=== PATIENT | male | born 1985 | race Hispanic/Latino ===

== ENCOUNTER 2020-11-12 16:28 | Emergency (ER) | payer SELFPAY ==
--- NOTE | 2020-11-12 19:01 | RAD REPORT ---
EXAM DESCRIPTION: Addi Single View11/12/2020 5:53 pm CLINICAL HISTORY: Chest pain COMPARISON: none FINDINGS: Left lateral base is hazy. The remainder of the lungs appear clear of acute infiltrate. The heart is normal size IMPRESSION: Left lateral base is hazy which could be secondary to overlying soft tissue or a mild i nfiltrate. PA and lateral chest series may be helpful for further evaluation if clinically indicated
[2020-11-12 19:57] LABS: SARS-COV-2 RT PCR POSITIVE (NEGATIVE)
--- NOTE | 2020-11-12 20:04 | ER ---
Nurse's Notes [facility] Name: Natanael Pop Age: 35 yrs Sex: Male : 1985 Arrival Date: 11/12/2020 Time: 16:33 Bed 26 Private MD: Diagnosis: Coronavirus infection, unspecified Presentation: 11/12 16:47 Chief complaint: Patient states: tested positive for covid 12 days ago, did not have em any symptoms until yesterday, reports fever, chills, headache and body aches. Coronavirus screen: chills, fever, headache, Client reports previous positive COVID test result. Date of collection: November 01, 2020. Ebola Screen: Patient negative for fever greater than or equal to 101.5 degrees Fahrenheit, and additional compatible Ebola Virus Disease symptoms Patient denies exposure to infectious person. Patient denies travel to an Ebola-affected area in the 21 days before illness onset. No symptoms or risks identified at this time. Initial Sepsis Screen: Does the patient meet any 2 criteria? No. Patient's initial sepsis screen is negative. Does the patient have a suspected source of infection? No. Patient's initial sepsis screen is negative. Risk Assessment: Do you want to hurt yourself or someone else? Patient reports no desire to harm self or others. Onset of symptoms was November 12, 2020. 16:47 Method Of Arrival: Ambulatory em 16:47 Acuity: JORGE 3 em Historical: - Allergies: 16:50 No Known Allergies; em - PMHx: 16:50 None; em - PSHx: 16:50 None; em - Immunization history:: Adult Immunizations up to date. - Social history:: Smoking status: Patient denies any tobacco usage or history of. Screenin:05 Abuse screen: Denies threats or abuse. Denies injuries from another. Nutritional zb screening: No deficits noted. Tuberculosis screening: No symptoms or risk factors identified. Fall Risk None identified. Assessment: 18:06 General: Appears in no apparent distress. uncomfortable, Behavior is calm, cooperative, zb appropriate for age, Reports chills for 1-2 days, fever for 1-2 days, feeling ill for 1-2 days, fatigue for 1-2 days. Pain: Complains of pain in forehead, generalized body aches Pain does not radiate. Pain currently is 8 out of 10 on a pain scale. Quality of pain is described as aching, Pain began 1 day ago. Neuro: Level of Consciousness is awake, alert, obeys commands, Oriented to person, place, time, situation. Cardiovascular: Capillary refill < 3 seconds in bilateral fingers Patient's skin is warm and dry. Respiratory: Airway is patent Respiratory effort is even, unlabored, Respiratory pattern is regular, symmetrical. GI: Reports diarrhea, nausea. Derm: Skin is intact, is healthy with good turgor, Skin is dry, Skin is normal, Skin temperature is warm. Musculoskeletal: Circulation, motion, and sensation intact. Range of motion: intact in all extremities. 18:39 Reassessment: Patient appears in no apparent distress at this time. Patient and/or zb family updated on plan of care and expected duration. Pain level reassessed. Patient is alert, oriented x 3, equal unlabored respirations, skin warm/dry/pink. patient awaiting result. ambulated to restroom. 19:16 Reassessment: patient states he is feeling nauseous. notified ECP. zb Vital Signs: 16:47 BP 149 / 106; Pulse 81; Resp 18; Temp 98.5(O); Pulse Ox 99% on R/A; Weight 104.33 kg; em Height 5 ft. 10 in. (177.80 cm); Pain 8/10; 17:45 BP 130 / 91; Pulse 67; Resp 16; Pulse Ox 96% on R/A; zb 18:38 BP 128 / 82; Pulse 65; Resp 16; Pulse Ox 97% on R/A; zb 20:34 BP 118 / 68; Pulse 64; Resp 18; Pulse Ox 98% ; ak2 16:47 Body Mass Index 33.00 (104.33 kg, 177.80 cm) em ED Course: 16:33 Patient arrived in ED. mr 16:36 [facility]man [facility]C [facility] kb 16:36 Abilio Bowens MD is Attending Physician. kb 16:50 Triage completed. em 16:50 Arm band placed on. em 17:06 Kika Samuels, TORO is Primary Nurse. zb 17:30 Flu and/or RSV swab sent to lab. Strep swab sent to lab. zb 17:53 Chest Single View XRAY In Process Unspecified. EDMS 18:05 Patient has correct armband on for positive identification. Bed in low position. Call zb light in reach. Side rails up X 1. Pulse ox on. NIBP on. Door closed. Noise minimized. 20:35 No provider procedures requiring assistance completed. Patient did not have IV access ak2 during this emergency room visit. Administered Medications: 19:55 Drug: Zofran (Ondansetron) 4 mg Route: PO; ak2 Outcome: 20:03 Discharge ordered by MD. jorge 20:35 Discharged to home ambulatory. ak2 20:35 Condition: stable 20:35 Discharge instructions given to patient. 20:36 Patient left the ED. ak2 Signatures: Dispatcher [employer] Soumya Kebede, FIRE EXTINGUISHER SPRINKLER INSPECTOR-C FIRE EXTINGUISHER SPRINKLER INSPECTOR-Susana Joel Edgar, RN RN Kika Burgess RN RN Abhishek Fried ak2
--- NOTE | 2020-11-12 20:04 | EDPHYS ---
Physician Documentation [facility] Name: Natanael Pop Age: 35 yrs Sex: Male : 1985 Arrival Date: 11/12/2020 Time: 16:33 Bed 26 Private MD: ED Physician Abilio Bowens HPI: 11/12 20:17 This 35 yrs old Male presents to ER via Ambulatory with complaints of COVID+, kb Fever. 20:17 The patient or guardian reports flu symptoms, low-grade fever, myalgias. Onset: The kb symptoms/episode began/occurred yesterday. Severity of symptoms: At their worst the symptoms were moderate, in the emergency department the symptoms are unchanged. Modifying factors: The symptoms are alleviated by nothing, the symptoms are aggravated by nothing. Associated signs and symptoms: Pertinent positives: fever, Pertinent negatives: chest pain, diarrhea, ear ache, nausea, rhinorrhea, sore throat, vomiting. The patient has not experienced similar symptoms in the past. The patient has not recently seen a physician. Pt reports fever, chills, bodyaches, headache, malaise since yesterday. States he was tested for COVID 12 days ago due to exposure and was positive but asymptomatic until yesterday. Historical: - Allergies: 16:50 No Known Allergies; em - PMHx: 16:50 None; em - PSHx: 16:50 None; em - Immunization history:: Adult Immunizations up to date. - Social history:: Smoking status: Patient denies any tobacco usage or history of. ROS: 20:15 ENT: Negative for injury, pain, and discharge, Cardiovascular: Negative for chest pain, kb palpitations, and edema, Abdomen/GI: Negative for abdominal pain, nausea, vomiting, diarrhea, and constipation, MS/Extremity: Negative for injury and deformity, Skin: Negative for injury, rash, and discoloration. 20:15 Constitutional: Positive for body aches, chills, fatigue, fever, malaise. 20:15 Respiratory: Positive for dyspnea on exertion, Negative for cough, hemoptysis, orthopnea, pleurisy, shortness of breath, sputum production, wheezing. 20:15 Neuro: Positive for headache. Exam: 20:16 Constitutional: This is a well developed, well nourished patient who is awake, alert, kb and in no acute distress. Head/Face: Normocephalic, atraumatic. ENT: Moist Mucous membranes Cardiovascular: Regular rate and rhythm with a normal S1 and S2. No gallops, murmurs, or rubs. No pulse deficits. Respiratory: Respirations even and unlabored. No increased work of breathing, no retractions or nasal flaring. Abdomen/GI: Soft, non-tender. No distention Skin: Warm, dry with normal turgor. Normal color. MS/ Extremity: Pulses equal, no cyanosis. Neurovascular intact. Full, normal range of motion. Neuro: Awake and alert, GCS 15, oriented to person, place, time, and situation. Moves all extremities. Normal gait. Psych: Awake, alert, with orientation to person, place and time. Behavior, mood, and affect are within normal limits. Vital Signs: 16:47 BP 149 / 106; Pulse 81; Resp 18; Temp 98.5(O); Pulse Ox 99% on R/A; Weight 104.33 kg; em Height 5 ft. 10 in. (177.80 cm); Pain 8/10; 17:45 BP 130 / 91; Pulse 67; Resp 16; Pulse Ox 96% on R/A; zb 18:38 BP 128 / 82; Pulse 65; Resp 16; Pulse Ox 97% on R/A; zb 20:34 BP 118 / 68; Pulse 64; Resp 18; Pulse Ox 98% ; ak2 16:47 Body Mass Index 33.00 (104.33 kg, 177.80 cm) em MDM: 16:51 Patient medically screened. kb 20:14 Data reviewed: vital signs, nurses notes. Data interpreted: Pulse oximetry: on room air kb is 97 %. Interpretation: normal. Counseling: I had a detailed discussion with the patient and/or guardian regarding: the historical points, exam findings, and any diagnostic results supporting the discharge/admit diagnosis, lab results, radiology results, the need for outpatient follow up, a family practitioner, to return to the emergency department if symptoms worsen or persist or if there are any questions or concerns that arise at home. 11/12 16:52 Order name: Flu kb 11/12 16:52 Order name: Strep kb 11/12 16:52 Order name: COVID-19 : Document "Date of Symptom Onset" if Symptomatic. kb 11/12 16:53 Order name: Group A Streptococcus Rapid Sc; Complete Time: 18:57 EDNJ 11/12 16:52 Order name: Chest Single View XRAY; Complete Time: 19:10 kb 11/12 18:56 Order name: Throat Culture EDNJ 11/12 19:57 Order name: COVID-19/FLU A+B; Complete Time: 19:57 EDMS Administered Medications: 19:55 Drug: Zofran (Ondansetron) 4 mg Route: PO; ak2 Disposition: 11/13 09:26 Co-signature as Attending Physician, Abilio Bowens MD I agree with the assessment and roddy plan of care. Disposition: 11/12/20 20:03 Discharged to Home. Impression: Coronavirus infection, unspecified. - Condition is Stable. - Discharge Instructions: Viral Respiratory Infection, [place]s, COVID-19. - Prescriptions for Zofran 4 mg Oral Tablet - take 1 tablet by ORAL route every 6 hours As needed; 20 tablet. - Medication Reconciliation Form, Thank You Letter, Antibiotic Education, Prescription Opioid Use form. - Follow up: Emergency Department; When: As needed; Reason: Worsening of condition. Follow up: Private Physician; When: 2 - 3 days; Reason: Recheck today's complaints, Continuance of care, Re-evaluation by your physician. Signatures: Dispatcher [employer] [facility] Soumya Rothman, LACIE ALFAROP-Abilio Chacon MD MD cha Munoz, Edgar, RN RN Abhishek Ibrahim ak2 Corrections: (The following items were deleted from the chart) 11/12 18:43 16:53 CORONAVIRUS ordered. [facility] 18:44 16:53 Influenza Screen (A ordered. [facility] 20:36 20:03 11/12/2020 20:03 Discharged to Home. Impression: Coronavirus infection, ak2 unspecified. Condition is Stable. Forms are Medication Reconciliation Form, Thank You Letter, Antibiotic Education, Prescription Opioid Use. Follow up: Emergency Department; When: As needed; Reason: Worsening of condition. Follow up: Private Physician; When: 2 - 3 days; Reason: Recheck today's complaints, Continuance of care, Re-evaluation by your physician. kb
[2020-11-12] MEDS ORDERED: ONDANSETRON 4 MG (ODT) TAB ONE (20:10)
[2020-11-12 21:07] VITALS: TEMP 98.5
[2020-11-12 21:11] VITALS: BP 118/68; O2SAT 98
== END 2020-11-12 20:36 | disposition home or self-care (01) ==
LOC: ER 16:28
DX: U07.1 COVID-19 (principal)
CPT/HCPCS: 0240U; 71045; 87070; 87081; 99284

== ENCOUNTER 2020-12-09 08:59 | Emergency (ER) | payer SELFPAY ==
[2020-12-09 09:37] LABS: Absolute Lymphocytes (CBC) 1.7 K/uL (0.7-4.9); Basophils % 0.7 % (0-1.3); Hematocrit 46.8 % (39.6-49.0); Lymphocytes % 11.5 % (15.3-44.8); MPV 8.8 fL (7.6-11.3); RBC Red Blood Cell Count 5.09 M/uL (4.33-5.43)
--- NOTE | 2020-12-09 09:43 | RAD REPORT ---
EXAM DESCRIPTION: CT - Abdomen Pelvis W Contrast - 12/09/2020 9:34 am CLINICAL HISTORY: nausea/vomiting/diarrhea COMPARISON: No comparisons TECHNIQUE: Biphasic, helical CT imaging of the abdomen and pelvis was performed following 100 ml non -ionic IV contrast. No oral contrast administered. All CT scans are performed using dose optimization technique as appropriate and may include automated exposure control or mA/KV adjustment according to patient size. FINDINGS: No suspicious findings in the lung bases. The liver, spleen, and pancreas show no focal lesions. Liver attenuation indicates a mild diffuse fat ty infiltration. No portal vein abnormality. . Cholecystectomy clips are present. No biliary tree abn ormal dilatation. Symmetric renal function is seen with no hydronephrosis or suspicious renal mass. No pyelonephritis o r acute parenchymal process. No bladder abnormalities. No adrenal abnormalities. No gastric dilatation or wall thickening. Multiple fluid-filled nondilated small bowel loops are pres ent. Fluid is in the nondilated colon as well. No appendicitis. Patient has minimal sigmoid diverticu losis. There is a short 3 centimeter long segment of mid sigmoid colon showing mild wall thickening w ith a trace amount of stranding in the adjacent fat. No free air, free fluid or pneumatosis. No evette ia, mass or bulky lymphadenopathy. No suspicious bony findings. IMPRESSION: Patient has mild sigmoid diverticulitis pattern. There is wall thickening, stranding an d a few diverticula in the mid sigmoid colon. Patient also has an overall enteritis pattern with fluid in nondilated large and small bowel.
[2020-12-09] MEDS ORDERED: NA CHLORIDE 0.9% 1,000 ML ONE (09:46)
[2020-12-09] MEDS ORDERED: ONDANSETRON 4 MG/2 ML VIAL ONE (09:46)
--- NOTE | 2020-12-09 09:47 | ER ---
Nurse's Notes [facility] Name: Natanael Pop Age: 35 yrs Sex: Male : 1985 Arrival Date: 12/09/2020 Time: 09:02 Bed 15 Private MD: Diagnosis: Diverticulitis of large intestine without perforation or abscess without bleeding Presentation: 12/09 09:09 Chief complaint: Patient states: Abd pain with N/V/D off/on since November 03. No fever. ll1 Coronavirus screen: Client denies travel out of the [place] in the last 14 days. diarrhea, nausea, vomiting. Client presents with at least one sign or symptom that may indicate coronavirus-19. Standard/surgical mask placed on the client. Ebola Screen: Patient denies travel to an Ebola-affected area in the 21 days before illness onset. Initial Sepsis Screen: Does the patient meet any 2 criteria? No. Patient's initial sepsis screen is negative. Does the patient have a suspected source of infection? Yes: Acute abdominal pain. Risk Assessment: Do you want to hurt yourself or someone else? Patient reports no desire to harm self or others. Onset of symptoms was November 03, 2020. 09:09 Method Of Arrival: Ambulatory [facility] 09:09 Acuity: JORGE 3 ll1 Triage Assessment: 09:06 General: Appears in no apparent distress. uncomfortable, Behavior is calm, cooperative, bp appropriate for age. Pain: Denies pain. EENT: No deficits noted. Neuro: Level of Consciousness is awake, alert, obeys commands, Oriented to Appropriate for age. Cardiovascular: No deficits noted. Respiratory: No deficits noted. GI: Reports nausea, vomiting. : No signs and/or symptoms were reported regarding the genitourinary system. Derm: No deficits noted. Musculoskeletal: No deficits noted. Historical: - Allergies: 09:11 No Known Allergies; ll1 - PMHx: 09:11 None; ll1 - PSHx: 09:11 Cholecystectomy; ll1 - Immunization history:: Client reports having NOT received the Covid vaccine. Flu vaccine is up to date. - Social history:: Smoking status: Patient denies any tobacco usage or history of. - Family history:: not pertinent. - Hospitalizations: : No recent hospitalization is reported. Screenin:08 Abuse screen: Denies threats or abuse. Denies injuries from another. Nutritional bp screening: No deficits noted. Tuberculosis screening: No symptoms or risk factors identified. Fall Risk None identified. Assessment: 09:08 General: SEE TRIAGE NOTE. bp 09:20 Reassessment: PT TO CT. bp 09:43 Reassessment: No changes from previously documented assessment. Patient and/or family bp updated on plan of care and expected duration. Pain level reassessed. Patient is alert, oriented x 3, equal unlabored respirations, skin warm/dry/pink. PT RETURNED FROM CT. 10:00 Reassessment: No changes from previously documented assessment. Patient and/or family bp updated on plan of care and expected duration. Pain level reassessed. D/C ON HOLD FOR IV ABX. 11:41 Reassessment: PT D/C HOME AMBULATORY, DX WITH DIVERTICULITIS WITHOUT PERFORATION. bp Vital Signs: 09:09 BP 142 / 108; Pulse 89; Resp 16; Temp 98.0; Pulse Ox 99% ; Weight 99.79 kg; Height 5 ll1 ft. 10 in. (177.80 cm); Pain 0/10; 09:42 BP 123 / 81; Pulse 81; Resp 16; Pulse Ox 97% ; bp 10:30 BP 123 / 82; Pulse 81; Resp 16; Pulse Ox 99% ; bp 11:30 BP 117 / 83; Pulse 73; Resp 16; Pulse Ox 97% ; bp 09:09 Body Mass Index 31.57 (99.79 kg, 177.80 cm) ll1 ED Course: 09:02 Patient arrived in ED. am2 09:03 Edgar Lynch MD is Attending Physician. rn 09:06 Familia Soliz, TORO is Primary Nurse. bp 09:08 Patient has correct armband on for positive identification. Bed in low position. Call bp light in reach. Side rails up X2. 09:10 Arm band placed on. bp 09:11 Triage completed. ll1 09:22 Inserted saline lock: 18 gauge in right antecubital area, using aseptic technique. bp Blood collected. 09:34 CT Abd/Pelvis - IV Contrast Only In Process Unspecified. EDMS 09:46 Brent Cat MD is Referral Physician. rn 11:30 No provider procedures requiring assistance completed. IV discontinued, intact, bp bleeding controlled, No redness/swelling at site. Pressure dressing applied. Administered Medications: 09:22 Drug: NS 0.9% 1000 ml Route: IV; Rate: 1000 ml; Site: right antecubital; bp 11:44 Follow up: IV Status: Completed infusion; IV Intake: 1000ml bp 09:22 Drug: Zofran (Ondansetron) 4 mg Route: IVP; Site: right antecubital; bp 10:07 Follow up: Response: Nausea is decreased bp 10:00 Drug: Flagyl (metroNIDAZOLE) 500 mg Volume: 100 ml; Route: IVPB; Rate: 200 ml/hr; bp Infused Over: 30 mins; Site: right antecubital; 11:45 Follow up: IV Status: Completed infusion; IV Intake: 100ml bp 10:30 Drug: Cipro (ciprofloxacin) 400 mg Volume: 200 ml; Route: IVPB; Infused Over: 60 mins; bp Site: right antecubital; 11:45 Follow up: IV Status: Completed infusion bp Intake: 11:44 IV: 1000ml; Total: 1000ml. bp 11:45 IV: 100ml; Total: 1100ml. bp Outcome: 09:46 Discharge ordered by . rn 11:30 Discharged to home ambulatory. bp 11:30 Condition: stable 11:30 Discharge instructions given to patient, Instructed on discharge instructions, follow up and referral plans. medication usage, Demonstrated understanding of instructions, follow-up care, medications, Prescriptions given X 3. 11:49 Patient left the ED. bp Signatures: Dispatcher [employer] EDMS Edgar Lynch MD MD rn Moreno, Amanda am2 Peltier, Brian, RN RN bp Lewis, Lynsay, RN RN ll1
--- NOTE | 2020-12-09 09:47 | EDPHYS ---
Physician Documentation [facility] Name: Natanael Pop Age: 35 yrs Sex: Male : 1985 Arrival Date: 12/09/2020 Time: 09:02 Bed 15 Private MD: ED Physician Edgar Lynch HPI: 12/09 09:14 This 35 yrs old Male presents to ER via Ambulatory with complaints of rn Abdominal Pain, Vomiting/Diarrhea. 09:14 The patient presents to the emergency department with nausea, vomiting, diarrhea. rn Onset: The symptoms/episode began/occurred 1 month(s) ago. Possible causes: unknown. The symptoms are aggravated by nothing. The symptoms are alleviated by nothing. Associated signs and symptoms: Pertinent positives: abdominal pain, diarrhea, nausea, vomiting, Pertinent negatives: fever, GI bleeding. Severity of symptoms: At their worst the symptoms were mild in the emergency department the symptoms have improved. The patient has not experienced similar symptoms in the past. The patient has not recently seen a physician. Reports diagnosed with COVID 1 month ago, has been having intermittent nausea/vomiting/diarrhea since then, no fever, + generalized weakness. No blood in stool or emesis. Worse over last few days. No current abd pain.. Historical: - Allergies: 09:11 No Known Allergies; ll1 - PMHx: 09:11 None; ll1 - PSHx: 09:11 Cholecystectomy; ll1 - Immunization history:: Client reports having NOT received the Covid vaccine. Flu vaccine is up to date. - Social history:: Smoking status: Patient denies any tobacco usage or history of. - Family history:: not pertinent. - Hospitalizations: : No recent hospitalization is reported. ROS: 09:14 Constitutional: Negative for fever, chills, and weight loss, Eyes: Negative for injury, rn pain, redness, and discharge, Neck: Negative for injury, pain, and swelling, Cardiovascular: Negative for chest pain, palpitations, and edema, Respiratory: Negative for shortness of breath, cough, wheezing, and pleuritic chest pain, Abdomen/GI: Negative for constipation Back: Negative for injury and pain, MS/Extremity: Negative for injury and deformity, Skin: Negative for injury, rash, and discoloration, Neuro: Negative for headache, numbness, tingling, and seizure. Exam: 09:14 Constitutional: This is a well developed, well nourished patient who is awake, alert, rn and in no acute distress. Head/Face: Normocephalic, atraumatic. Eyes: Periorbital areas with no swelling, redness, or edema. ENT: dry MM Cardiovascular: Regular rate and rhythm. No pulse deficits. Respiratory: No increased work of breathing, no retractions or nasal flaring. Abdomen/GI: soft, non-tender, no masses Skin: Warm, dry MS/ Extremity: Pulses equal, no cyanosis. Neuro: Awake and alert, GCS 15 Vital Signs: 09:09 BP 142 / 108; Pulse 89; Resp 16; Temp 98.0; Pulse Ox 99% ; Weight 99.79 kg; Height 5 ll1 ft. 10 in. (177.80 cm); Pain 0/10; 09:42 BP 123 / 81; Pulse 81; Resp 16; Pulse Ox 97% ; bp 10:30 BP 123 / 82; Pulse 81; Resp 16; Pulse Ox 99% ; bp 11:30 BP 117 / 83; Pulse 73; Resp 16; Pulse Ox 97% ; bp 09:09 Body Mass Index 31.57 (99.79 kg, 177.80 cm) ll1 MDM: 09:03 Patient medically screened. rn 09:45 Differential diagnosis: Nonspecific abd pain, appendicitis, diverticulitis, viral rn gastroenteritis, gastroenteritis. Data reviewed: vital signs, nurses notes, lab test result(s), radiologic studies, CT scan, and as a result, I will discharge patient. Counseling: I had a detailed discussion with the patient and/or guardian regarding: the historical points, exam findings, and any diagnostic results supporting the discharge/admit diagnosis, lab results, radiology results, the need for outpatient follow up, to return to the emergency department if symptoms worsen or persist or if there are any questions or concerns that arise at home. Response to treatment: the patient's symptoms have mildly improved after treatment, and as a result, I will discharge patient. Special discussion: Based on the patient's Hx, exam, and Dx evaluation, there is no indication for emergent surgery or inpatient Tx. It is understood by the patient/guardian that if the Sx's persist or worsen they need to return immediately for re-evaluation. I discussed with the patient/guardian in detail that at this point there is no indication for admission to the hospital. It is understood, however, that if the symptoms persist or worsen the patient needs to return immediately for re-evaluation. ED course: CT shows diverticulitis, mild, as well as enteritis, will dc home with zofran, abx, and return precautions in addition to GI f/u.. 12/09 09:09 Order name: Basic Metabolic Panel rn 12/09 09:09 Order name: CBC with Diff rn 12/09 09:09 Order name: Hepatic Function rn 12/09 09:09 Order name: Lipase rn 12/09 09:10 Order name: Basic Metabolic Panel EDMS 12/09 09:10 Order name: CBC with Automated Diff; Complete Time: 09:39 EDMS 12/09 09:09 Order name: CT Abd/Pelvis - IV Contrast Only; Complete Time: 09:44 rn 12/09 09:10 Order name: Liver (Hepatic) Function EDMS 12/09 09:10 Order name: Lipase EDMS 12/09 09:59 Order name: CREATININE WHOLE BLOOD EDMS 12/09 09:09 Order name: IV Saline Lock; Complete Time: 09:28 rn 12/09 09:09 Order name: Labs collected and sent; Complete Time: 09:28 rn Administered Medications: 09:22 Drug: NS 0.9% 1000 ml Route: IV; Rate: 1000 ml; Site: right antecubital; bp 11:44 Follow up: IV Status: Completed infusion; IV Intake: 1000ml bp 09:22 Drug: Zofran (Ondansetron) 4 mg Route: IVP; Site: right antecubital; bp 10:07 Follow up: Response: Nausea is decreased bp 10:00 Drug: Flagyl (metroNIDAZOLE) 500 mg Volume: 100 ml; Route: IVPB; Rate: 200 ml/hr; bp Infused Over: 30 mins; Site: right antecubital; 11:45 Follow up: IV Status: Completed infusion; IV Intake: 100ml bp 10:30 Drug: Cipro (ciprofloxacin) 400 mg Volume: 200 ml; Route: IVPB; Infused Over: 60 mins; bp Site: right antecubital; 11:45 Follow up: IV Status: Completed infusion bp Disposition: 12/09/20 09:46 Discharged to Home. Impression: Diverticulitis of large intestine without perforation or abscess without bleeding. - Condition is Stable. - Discharge Instructions: Diverticulitis. - Prescriptions for Zofran ODT 4 mg Oral tablet,disintegrating - place 1 tablet by TRANSLINGUAL route every 8 hours As needed; 20 tablet. Flagyl 500 mg Oral Tablet - take 1 tablet by ORAL route every 8 hours for 10 days; 30 tablet. Cipro 500 mg Oral Tablet - take 1 tablet by ORAL route every 12 hours for 10 days; 20 tablet. - Medication Reconciliation Form, Thank You Letter, Antibiotic Education, Prescription Opioid Use, Work release form form. - Follow up: Brent Cat MD; When: As needed; Reason: Recheck today's complaints, Re-evaluation by your physician. - Problem is new. - Symptoms have improved. Signatures: Dispatcher [employer] EDMS Edgar Lynch MD MD rn Peltier, Brian RN Junito Gutierrez RN RN ll1 Corrections: (The following items were deleted from the chart) 11:49 09:46 12/09/2020 09:46 Discharged to Home. Impression: Diverticulitis of large bp intestine without perforation or abscess without bleeding. Condition is Stable. Forms are Medication Reconciliation Form, Thank You Letter, Antibiotic Education, Prescription Opioid Use. Follow up: Brent Cat; When: As needed; Reason: Recheck today's complaints, Re-evaluation by your physician. Problem is new. Symptoms have improved. rn
[2020-12-09 09:56] LABS: Albumin 4.1 g/dL (3.4-5.0); Bilirubin Direct 0.2 mg/dL (0-0.2); Bilirubin Total 0.9 mg/dL (0.2-1.0); Potassium 3.8 mmol/L (3.5-5.1); Protein, Total 8.9 g/dL (6.4-8.2)
[2020-12-09] MEDS ORDERED: CIPROFLOXACIN 400mg IV 400 MG/200 ML BAG IV ONE (10:21)
[2020-12-09] MEDS ORDERED: METRONIDAZOLE 500mg IVPB 500 MG/100 ML BAG IV ONE (10:22)
[2020-12-09 11:57] VITALS: TEMP 98
[2020-12-09 12:01] VITALS: BP 117/83; O2SAT 97
== END 2020-12-09 11:49 | disposition home or self-care (01) ==
LOC: ER 08:59
DX: K57.32 Diverticulitis of large intestine without perforation or abscess without bleeding (principal); Z86.16 Personal history of COVID-19
CPT/HCPCS: 36415; 74177; 80048; 80076; 82565; 83690; 85025; 96361; 96365; 96375; 99284; J0744; J2405; J7030; Q9967